=== PATIENT | male | born 1955 | race Asian ===

== ENCOUNTER 2017-08-02 10:05 | Emergency (ER) | payer MEDICARE, OTHER ==
[~2017-08-02] VITALS: Ht 167.6 cm; Wt 88.4 kg
[~2017-08-02 10:05] MED LIST: ALLO100T PO; ASPI325T4 PO; CARV3.1260 PO; CLOP75TA28 PO; COLC0.6T6 PO; FURO-109 PO; HYDR-3498 PO; LISI2.5T59 PO; METF500T3 PO; POTA8CAP PO; SIMV40TA3 PO
[2017-08-02 10:08] VITALS: Ht 167.6 cm; Wt 88.4 kg
[2017-08-02 10:55] LABS: BASOPHIL # 0.1 10^3/ul (0.0-0.1); BASOPHILS % 0.7 % (0.0-2.0); EOSINOPHILS # 0.2 10^3/ul (0.0-0.5); EOSINOPHILS % 2.4 % (0.0-7.0); HEMOGLOBIN 14.4 g/dl (14.0-18.0); LYMPHOCYTES # 2.6 10^3/ul (0.8-2.9); LYMPHOCYTES % 30.7 % (15.0-51.0); MEAN CORPUSCULAR HEMOGLOBIN 30.6 pg (29.0-33.0); MEAN CORPUSCULAR HGB CONC 34.3 g/dl (32.0-37.0); MEAN CORPUSCULAR VOLUME 89.4 fl (82.0-101.0); MEAN PLATELET VOLUME 10.2 fl (7.4-10.4); MONOCYTE # 0.9 10^3/ul (0.3-0.9); MONOCYTES % 10.6 % (0.0-11.0); NEUTROPHIL # 4.6 10^3/ul (1.6-7.5); NEUTROPHILS % 55.2 % (39.0-77.0); PLATELET COUNT 257 10^3/UL (140-415); RED CELL DISTRIBUTION WIDTH 13.2 % (11.5-14.5); WHITE BLOOD COUNT 8.4 10^3/ul (4.8-10.8)
--- NOTE | 2017-08-02 11:21 | RADRPT ---
PROCEDURE: XR Left Shoulder. CLINICAL INDICATION: Left shoulder pain, no history of trauma TECHNIQUE: 3 views of the left shoulder are available for review. COMPARISON: None available FINDINGS: There is no acute fracture. There are chronic appearing calcification/ossification along the postero superior glenoid rim. Alignment is normal. There is mild acromioclavicular osteoarthrosis. Soft tissues are grossly unremarkable. IMPRESSION: 1. No radiographic evidence of acute osseous abnormality. 2. Mild acromioclavicular osteoarthrosis. 3. Chronic appearing calcification/ossification along the posterosuperior glenoid rim, likely associ ated with the labrum. RPTAT: UU .Dom Schofield MD, MD Date Time Electronically viewed and signed by .Dom Schofield MD, on 08/02/2017 11:20 .K/
[2017-08-02 11:27] LABS: CREATININE 0.99 mg/dl (0.61-1.24); POTASSIUM 3.9 mmol/L (3.5-5.1)
--- NOTE | 2017-08-02 11:27 | RADRPT ---
PROCEDURE: XR Chest. CLINICAL INDICATION: Chest Pain. TECHNIQUE: Single frontal view of the chest was obtained COMPARISON: Chest radiograph dated June 30, 2016. FINDINGS: There is stable cardiomegaly. Coronary artery stent is present. The lungs are clear with no focal consolidations, pleural effusions, or pneumothorax. Degenerative changes of the shoulder joints are present. IMPRESSION: 1. No acute cardiopulmonary disease. RPTAT:AAJJ Car Wooten Physician Date Time Electronically viewed and signed by Car Wooten Physician on 08/02/2017 11:27 QL/
[2017-08-02 11:35] LABS: TROPONIN-I 0.017 ng/ml (0.00-0.12)
--- NOTE | 2017-08-02 12:17 | ERD ---
ER Documentation Chief Complaint Chief Complaint left shoulder pain x 1 week, sent by pmd for cardiac workup HPI This is a 62-year-old gentleman who presents with 1 week of shoulder pain. The patient has a history of cardiac disease and stenting and he was sent by his primary care physician's office because of concern for possible cardiac etiology. The patient describes nocturnal left shoulder pain that is worse when he is sleeping on the shoulder. It is slightly worse with rotational movement. He denies any chest pain or exertional pain, no numbness or tingling and no back pain. This is not his anginal equivalent. ROS All systems reviewed and are negative except as per history of present illness. Medications Home Meds Active Scripts Ibuprofen* (Motrin*) 800 Mg Tab, 800 MG PO Q6H Y for PAIN AND OR ELEVATED TEMP, #30 TAB Prov:MINOO BHATIA MD 08/02/17 Potassium Chloride* (Potassium Chloride*) 8 Meq Capsule.er, 8 MEQ PO DAILY, #30 CAP 3 Refills Prov:LOLY KUMAR 07/01/16 Furosemide* (Lasix*) 40 Mg Tablet, 40 MG PO DAILY, #30 TAB 3 Refills Prov:LOLY KUMAR 07/01/16 Lisinopril* (Lisinopril*) 2.5 Mg Tablet, 2.5 MG PO DAILY for 30 Days, #30 TAB 3 Refills Prov:LOLY KUMAR 07/01/16 Hydrocodone Bit-Acetaminophen (Hydrocodone Bit-APAP) 5-325MG Tablet, 1 TAB PO Q4H Y for PAIN, #30 TAB Prov:LOLY KUMAR 07/01/16 Colchicine* (Colcrys*) 0.6 Mg Tablet, 0.6 MG PO DAILY for 30 Days, TAB 3 Refills Prov:LOLY KUMAR 07/01/16 Clopidogrel Bisulfate (Clopidogrel) 75 Mg Tablet, 75 MG PO DAILY for 30 Days, TAB 3 Refills Prov:LOLY KUMAR 07/01/16 Carvedilol* (Carvedilol*) 3.125 Mg Tablet, 3.125 MG PO BID for 30 Days, TAB 3 Refills Prov:LOLY KUMAR 07/01/16 Aspirin (Aspirin Lite-Coat) 325 Mg Tablet, 325 MG PO DAILY for 30 Days, TAB 3 Refills Prov:LOLY KUMAR 07/01/16 Allopurinol* (Allopurinol*) 100 Mg Tablet, 100 MG PO DAILY for 30 Days, TAB 3 Refills Prov:LOLY KUMAR 07/01/16 Reported Medications Metformin* (Glucophage* XR) 500 Mg Tab.sr.24h, 500 MG PO DAILY, 06/22/16 Simvastatin (Simvastatin) 40 Mg Tablet, 40 MG PO DAILY, #30 TAB 06/22/16 Allergies Allergies: Coded Allergies: No Known Drug Allergy (Verified Allergy, Unknown, 06/29/16) PMhx/Soc History of Surgery: Yes (stent placement) Anesthesia Reaction: No Hx Neurological Disorder: No Hx Respiratory Disorders: No Hx Cardiac Disorders: Yes (htn.[place]) Hx Psychiatric Problems: No Hx Miscellaneous Medical Probl: Yes (arthritis) Hx Alcohol Use: Yes (socially) Hx Substance Use: No Hx Tobacco Use: Yes Smoking Status: Former smoker FmHx Family History: No diabetes Physical Exam Vitals Vital Signs Date Time Temp Pulse Resp B/P Pulse Ox O2 Delivery O2 Flow Rate FiO2 08/02/17 10:08 98.0 60 18 174/79 99 Physical Exam General: Well developed, well nourished, no acute distress Head: Normocephalic, atraumatic. Eyes: Pupils equally reactive, EOM intact ENT: Moist mucous membranes Neck: Supple, no lymphadenopathy Respiratory: Lungs clear bilaterally, no distress Cardiovascular: RRR, no murmurs, rubs, or gallops Abdominal: Soft, non-tender, non-distended, no peritoneal signs : Deferred MSK: Left shoulder with mild soft tissue tenderness, negative supraspinatus test. Full active and passive range of motion without ligamentous instability. Neurologic: Alert and oriented, moving all extremities, normal speech, no focal weakness, no cerebellar signs Skin: No rash Psych: Normal mood Result Diagram: 08/02/17 1020 08/02/17 1020 Results 24 hrs Laboratory Tests Test 08/02/17 10:20 White Blood Count 8.410^3/ul Red Blood Count 4.7010^6/ul Hemoglobin 14.4g/dl Hematocrit 42.0% Mean Corpuscular Volume 89.4fl Mean Corpuscular Hemoglobin 30.6pg Mean Corpuscular Hemoglobin Concent 34.3g/dl Red Cell Distribution Width 13.2% Platelet Count 23382^3/UL Mean Platelet Volume 10.2fl Neutrophils % 55.2% Lymphocytes % 30.7% Monocytes % 10.6% Eosinophils % 2.4% Basophils % 0.7% Nucleated Red Blood Cells % 0.0/100WBC Neutrophils # 4.610^3/ul Lymphocytes # 2.610^3/ul Monocytes # 0.910^3/ul Eosinophils # 0.210^3/ul Basophils # 0.110^3/ul Nucleated Red Blood Cells # 0.010^3/ul Sodium Level 144mmol/L Potassium Level 3.9mmol/L Chloride Level 104mmol/L Carbon Dioxide Level 27mmol/L Anion Gap 17 Blood Urea Nitrogen 21mg/dl Creatinine 0.99mg/dl Glucose Level 108mg/dl Calcium Level 10.0mg/dl Troponin I 0.017ng/ml Procedures/MDM EKG, MONITORS, & DIAGNOSTIC IMAGING: EKG: I reviewed and interpreted a 12-lead EKG. Rhythm: Normal sinus rhythm Ectopy: None Intervals: No abnormalities ST segments: No elevations or depressions T waves: No contiguous inversions Chest x-ray: I reviewed and interpreted a 1 view of the chest Mediastinum: No enlargement Cardiac silhouette: No cardiomegaly Airspace: Clear lung robbins bilaterally without evidence of pneumothorax Bones: No evidence of fracture X-ray left shoulder IMPRESSION: 1. No radiographic evidence of acute osseous abnormality. 2. Mild acromioclavicular osteoarthrosis. 3. Chronic appearing calcification/ossification along the posterosuperior glenoid rim, likely associated with the labrum. Per radiologist LAB INTERPRETATION: Negative troponin MEDICAL DECISION MAKING: the patient presents for shoulder pain that seems to be very consistent with musculoskeletal etiology. X-ray imaging confirms calcification along the glenoid rim which is consistent with the patient's exam. The patient does not have anginal equivalent and while he does have cardiac history I do not believe that his presentation today is consistent with cardiac pain. The patient follows with Dr. Díaz. I have consulted Dr. Díaz and he will evaluate the patient in the emergency department. The patient had an appointment with him today. The patient states this is not consistent with his anginal equivalent. He has no exertional symptoms. He has a nonischemic EKG and a negative troponin with 1 week of symptoms. ER COURSE: I spoke to the patient's referring primary care physician and outpatient follow- up is appropriate. I spoke to Dr. Díaz who agrees with outpatient management. Patient will be treated with a course of NSAIDs with outpatient orthopedic surgery follow-up. MRI imaging may be necessary at a later date. I kept the patient and/or family informed of laboratory and diagnostic imaging results throughout the emergency room course. DISPOSITION PLAN: We discussed follow up with the patient's primary care doctor within 24 to 48 hours as needed. We also discussed return to the emergency room for worsening symptoms or worsening condition. Outpatient referral: Orthopedic surgery as needed Discharge Medications: Motrin Departure Diagnosis: Primary Impression: Left shoulder pain Chronicity: acute Qualified Code: M25.512 - Acute pain of left shoulder Condition: Stable MINOO BHATIA MD Aug 02, 2017 12:16
[2017-08-02] MEDS ORDERED: IBUP800T25 PO (13:21)
--- NOTE | 2017-08-03 07:28 | CONS ---
DATE OF ADMISSION: 08/02/2017 DATE OF CONSULTATION: 08/02/2017 CARDIOLOGY CONSULTATION REASON FOR CONSULTATION: Shoulder pain, questionable chest pain. REQUESTING PHYSICIAN: Dr. Nick from the emergency department. HISTORY OF PRESENT ILLNESS: Mr. Whitfield is a 62-year-old male with a history of hypertension and m yocardial infarction in June 2016, status post PTCA and stent placement to LAD for 100% occluded LAD, cardiomyopathy, decreased left ventricular ejection fraction who represents with complaints of left shoulder pain and questionable substernal chest pain. The patient upon arrival had temperatur e of 98, blood pressure 174/79, pulse 60, respirations 18, sat 99%. The patient's labs revealed a w joanne count 8.4, hemoglobin , platelet count of 257, sodium 144, potassium 3.9, creatinine of 0. 9, BUN 21. Troponin negative. The patient underwent a chest x-ray revealing no acute cardiopulmona ry disease and a shoulder x-ray that revealed no radiographic evidence of acute osseous abnormality, mild acromioclavicular osteoarthrosis, chronic-appearing calcification, ossification along the post erosuperior glenoid rim. The patient's electrocardiogram revealed normal sinus rhythm with no signi ficant ST-T abnormalities. The patient came to the emergency department. Had a negative troponin. The patient has no complaints of chest pain and is to possibly be discharged with close outpatient followup and review of recent stress test. PAST MEDICAL HISTORY: As above in HPI. MEDICATIONS AT HOME: 1. Plavix 75 mg daily. 2. Carvedilol 3.125 mg b.i.d. 3. Lisinopril 2.5 mg daily. 4. Simvastatin 40 mg daily. 5. Aspirin 325 daily. 6. [place] p.r.n. 7. Ibuprofen p.r.n. 8. Lasix 40 mg daily. 9. Potassium chloride 8 mEq daily. 10. Metformin 500 mg daily. 11. Allopurinol 100 mg daily. 12. Colchicine 0.6 mg daily. ALLERGIES: NO KNOWN DRUG ALLERGIES. SOCIAL HISTORY: No tobacco, EtOH, illicit drug use. FAMILY HISTORY: No history of sudden cardiac , . REVIEW OF SYSTEMS: As noted in HPI. CONSTITUTIONAL: No fevers, chills. PULMONARY: No current shortness of breath. CARDIOVASCULAR: No current chest pain. GASTROINTESTINAL: No vomiting. GENITOURINARY: No hematuria. MUSCULOSKELETAL: Shoulder pain. PSYCHIATRIC: The patient denies depression. NEUROLOGIC: No documented history of CVA. PHYSICAL EXAMINATION VITAL SIGNS: Temperature 98, blood pressure 174/79, pulse 60, respirations 18, sat 99%. GENERAL: The patient is alert, awake, complaining of shoulder pain. NECK: JVP approximately 8 to 9 cm of water. CHEST: Fair movement throughout. HEART: Regular rate and rhythm. Normal S1, S2. I/ systolic murmur. Nondisplaced PMI. ABDOMEN: Positive bowel sounds, soft. EXTREMITIES: No edema, 1+ pulses bilateral posterior tibial. LABORATORIES: As above in HPI. No further labs for my review at this time. IMAGING STUDIES: As above in HPI. No further imaging studies for my review at this time. ELECTROCARDIOGRAM: As above in HPI. No further electrocardiogram for my review at this time. IMPRESSION: 1. Chest pain: At this time, somewhat atypical etiology with negative troponin and no significant change on EKG. 2. History of percutaneous transluminal coronary angioplasty and stent placement to left anterior d escending in June 2016 for 100% occlusion. 3. History of cardiomyopathy, decreased left ventricular ejection fraction approximately 35% by [facility] o June 2017. 4. Hypertension. Currently uncontrolled but in the setting of shoulder pain and unclear if the pat ient took his medication this morning. 5. Dyslipidemia. RECOMMENDATIONS: 1. At this time would maintain the patient is his current medications as an outpatient including be ta elton, ABRAHAM inhibitor. Would use for any recurrent concerning chest pain. 2. Will continue the patient's baseline statin therapy. 3. Continue the patient's dual antiplatelet therapy with aspirin product for stent patency. 4. Continue his Lasix. Follow closely. 5. Will schedule the patient for followup appointment in my office to take place next week, at [facility] time we will further assess for any ongoing chest pain and need for further invasive evaluation. Thank you for allowing me to take part in the care of this patient. I will continue to follow him c losely with you. Dictated By: YAIR FRITZ/YURIY Conf#: [id number] DID#: [id number] CC: MINOO NICK MD;*[facility]*
== END 2017-08-02 14:12 | disposition home or self-care (01) ==
LOC: E/R 10:05
DX: M25.512 Pain in left shoulder (principal); I10 Essential (primary) hypertension; I51.9 Heart disease, unspecified; Z87.891 Personal history of nicotine dependence; Z79.82 Long term (current) use of aspirin; Z79.84 Long term (current) use of oral hypoglycemic drugs; Z98.61 Coronary angioplasty status
CPT/HCPCS: 36415; 71010; 73030; 80048; 84484; 85025; 93005

== ENCOUNTER 2018-08-08 15:38 | Emergency (ER) | END 2018-08-08 19:24 | disposition home or self-care (01) ==

== ENCOUNTER 2019-06-18 10:07 | Inpatient (IN) | payer MEDICARE, OTHER ==
[~2019-06-18] VITALS: Ht 167.6 cm; Wt 80.8 kg
[~2019-06-18 10:07] MED LIST changes: +ALLO300T2 PO; +APIX5TAB PO; +ASPI-817 PO; +ASPI325T29 PO; -ASPI325T4 PO; +BLOO-1202 MC; +CHOL100062 PO; +CLOP75TA19 PO; +FURO40TA4 PO; -HYDR-3498 PO; +HYDR-3601 PO; +HYDR-4011 PO; +IBUP800T48 PO; +LANC1COM MC; +LISI-313 PO; +METF-849 PO; +NAPR-688 PO; +NITR0.4T32 SL; -POTA8CAP PO; +POTA8CAP19 PO; +PRED20TA PO; +PREG50CA PO; +SIMV40TA2 PO; +[UNRECOGNIZED DRUG - CODE] SL
[2019-06-18] MEDS ORDERED: ASPIRIN 325 MG TAB PO STA (11:06)
[2019-06-18] MEDS ORDERED: NITROGLYCERIN (SL) 0.4 MG TAB SL PRN ×2 (11:30→18:00)
[2019-06-18] MEDS ORDERED: SOD CHLORIDE 0.9% 500 ML IV STA (11:55)
[2019-06-18] MEDS ORDERED: ONDANSETRON 4 MG INJ IV PRN (13:00)
[2019-06-18] MEDS ORDERED: ACETAMINOPHEN 325 MG TAB PO PRN (13:00)
[2019-06-18 17:23] VITALS: BP 133/77; PULSE 65; RESP 20
[2019-06-18 17:32] VITALS: Ht 167.6 cm; Wt 80.8 kg
[2019-06-18] MEDS: INSULIN ASPART [NOVOLOG] 3 ML PEN SC SCH ×2 (18:00→21:00)
[2019-06-18] MEDS ORDERED: GLUCOSE GEL 15 GRAM TUBE BUCCAL PRN (19:00)
[2019-06-18] MEDS ORDERED: DEXTROSE 50% 50 ML SYRINGE IV PRN ×2 (19:00)
[2019-06-18] MEDS ORDERED: GLUCOSE GEL 15 GRAM TUBE PO PRN ×2 (19:00)
[2019-06-18] MEDS ORDERED: GLUCAGON 1 MG INJ IM PRN (19:00)
[2019-06-18 19:20] VITALS: BP 128/78; PULSE 61; RESP 21
[2019-06-18] MEDS ORDERED: NON-FORMULARY/PATIENT OWN MED (Simvastatin* (Zocor*) 40 MG) PO SCH (21:00)
[2019-06-18 21:20] VITALS: BP 132/83; PULSE 74; RESP 19
[2019-06-18] MEDS: ATORVASTATIN 20 MG TAB PO SCH (21:26)
[2019-06-18] MEDS: PREGABALIN 25 MG CAP PO SCH (23:22)
[2019-06-18 23:35] VITALS: BP 125/81; PULSE 71; RESP 21
[2019-06-19] MEDS: ACCU-CHEK XX SCH (02:00)
[2019-06-19 04:20] VITALS: BP 122/77; PULSE 75; RESP 22
[2019-06-19 07:12] VITALS: BP 122/72; PULSE 71; RESP 20
[2019-06-19] MEDS: INSULIN ASPART [NOVOLOG] 3 ML PEN SC SCH ×4 (08:00→22:16)
[2019-06-19] MEDS: CLOPIDOGREL 75 MG TAB PO SCH (08:14)
[2019-06-19] MEDS: ALLOPURINOL 300 MG TAB PO SCH (08:14)
[2019-06-19] MEDS: CHOLECALCIFEROL 1,000 UNIT TAB PO SCH (08:14)
[2019-06-19] MEDS: LISINOPRIL 5 MG TAB PO SCH (08:14)
[2019-06-19] MEDS: CYANOCOBALAMIN 500 MCG TAB PO SCH (08:14)
[2019-06-19] MEDS: ASPIRIN (EC) 81 MG TAB PO SCH (08:15)
[2019-06-19] MEDS: FUROSEMIDE 40 MG TAB PO SCH (08:15)
[2019-06-19] MEDS: PREGABALIN 25 MG CAP PO SCH ×3 (08:15→21:05)
[2019-06-19] MEDS ORDERED: NON-FORMULARY/PATIENT OWN MED (Cyanocobalamin (Vitamin B-12) (Vitamin B-12) 1,000 MCG) SL SCH (09:00)
[2019-06-19 10:54] VITALS: BP 105/62; PULSE 61; RESP 20
[2019-06-19 15:19] VITALS: BP 109/69; PULSE 72; RESP 20
[2019-06-19 20:00] VITALS: BP_SYST 117; BP_SYST 145; BP_DIAS 58; BP_DIAS 75; PULSE 65; RESP 20
[2019-06-19] MEDS: ATORVASTATIN 20 MG TAB PO SCH (21:05)
[2019-06-20] VITALS (7 sets, daily range): BP systolic 99–140; BP diastolic 56–89; PULSE 55–67; RESP 18–20
[2019-06-20] MEDS: ACCU-CHEK XX SCH (01:26)
[2019-06-20] MEDS: INSULIN ASPART [NOVOLOG] 3 ML PEN SC SCH ×5 (05:00→21:00)
[2019-06-20] MEDS: CHOLECALCIFEROL 1,000 UNIT TAB PO SCH (08:24)
[2019-06-20] MEDS: ASPIRIN (EC) 81 MG TAB PO SCH (08:25)
[2019-06-20] MEDS: PREGABALIN 25 MG CAP PO SCH ×2 (08:25→21:54)
[2019-06-20] MEDS: CYANOCOBALAMIN 500 MCG TAB PO SCH (08:25)
[2019-06-20] MEDS: ALLOPURINOL 300 MG TAB PO SCH (08:26)
[2019-06-20] MEDS: CLOPIDOGREL 75 MG TAB PO SCH (08:26)
[2019-06-20] MEDS: LISINOPRIL 5 MG TAB PO SCH (08:26)
[2019-06-20] MEDS: FUROSEMIDE 40 MG TAB PO SCH (08:26)
[2019-06-20] MEDS: SOD CHLORIDE 0.9% 1,000 ML IV SCH (11:22)
[2019-06-20] MEDS ORDERED: DIPHENHYDRAMINE 50 MG CAP PO ONE (11:30)
[2019-06-20] MEDS ORDERED: DIAZEPAM 5 MG TAB PO ONE (11:30)
[2019-06-20] MEDS ORDERED: LIDOCAINE 1% (MDV) 20 ML INJ ONE (14:16)
[2019-06-20] MEDS ORDERED: HEPARIN 1000 UNITS/ML 10 ML INJ ONE ×2 (14:16→14:32)
[2019-06-20] MEDS ORDERED: IODIXANOL LOCM 100 ML BTL ONE (14:16)
[2019-06-20] MEDS ORDERED: VERAPAMIL 5 MG INJ ONE (14:32)
[2019-06-20] MEDS ORDERED: NITROGLYCERIN (IC) 100 MCG/ML INJ ONE (14:32)
[2019-06-20] MEDS ORDERED: FENTAnyl 50 MCG/ML VIAL ONE (14:38)
[2019-06-20] MEDS ORDERED: MIDAZOLAM 1 MG/ML 2 ML INJ ONE (14:38)
[2019-06-20] MEDS ORDERED: niCARdipine 25 MG INJ ONE (15:31)
[2019-06-20] MEDS ORDERED: BIVALIRUDIN 250MG /NS 50 ML 50 ML IVPB ONE (15:36)
[2019-06-20] MEDS ORDERED: SOD CHLORIDE 0.9% 1,000 ML IV SCH (15:48)
[2019-06-20] MEDS ORDERED: ONDANSETRON 4 MG INJ IV PRN (16:00)
[2019-06-20] MEDS ORDERED: OXYCODONE/ACETAMINOPHEN (5/325) TAB PO PRN (16:00)
[2019-06-20] MEDS ORDERED: AL HYDROX/MG HYDROX/SIMETH 30 ML CUP PO PRN (16:00)
[2019-06-20] MEDS ORDERED: ACETAMINOPHEN 325 MG TAB PO PRN (16:00)
[2019-06-20] MEDS ORDERED: morphine 2 MG INJ IV PRN (16:00)
[2019-06-20] MEDS ORDERED: ENOXAPARIN 40 MG/0.4 ML SYG SC SCH (21:00)
[2019-06-20] MEDS: ATORVASTATIN 20 MG TAB PO SCH (21:55)
[2019-06-21] MEDS: ACCU-CHEK XX SCH (02:00)
[2019-06-21 03:25] VITALS: BP 91/51; PULSE 61; RESP 20
[2019-06-21] MEDS: SOD CHLORIDE 0.9% 1,000 ML IV SCH (03:46)
[2019-06-21 07:45] VITALS: BP 113/68; PULSE 59; RESP 20
[2019-06-21] MEDS: INSULIN ASPART [NOVOLOG] 3 ML PEN SC SCH ×2 (08:00→11:32)
[2019-06-21] MEDS: PREGABALIN 25 MG CAP PO SCH (08:54)
[2019-06-21] MEDS: CHOLECALCIFEROL 1,000 UNIT TAB PO SCH (08:54)
[2019-06-21] MEDS: LISINOPRIL 5 MG TAB PO SCH (08:54)
[2019-06-21] MEDS: ALLOPURINOL 300 MG TAB PO SCH (08:54)
[2019-06-21] MEDS: CLOPIDOGREL 75 MG TAB PO SCH (08:54)
[2019-06-21] MEDS: ASPIRIN (EC) 81 MG TAB PO SCH (08:54)
[2019-06-21] MEDS: CYANOCOBALAMIN 500 MCG TAB PO SCH (08:55)
[2019-06-21] MEDS: FUROSEMIDE 40 MG TAB PO SCH (08:55)
[2019-06-21 11:04] VITALS: BP 109/66; PULSE 70; RESP 18
[2019-06-21 14:44] VITALS: BP 113/60; PULSE 73; RESP 18
[2019-06-21] MEDS ORDERED: APIXABAN 5 MG TABLET PO SCH (21:00)
== END 2019-06-21 15:56 | disposition home or self-care (01) | DRG 287 ==
LOC: E/R 10:07 → 6WM 12:47 → REC 06-20 07:56 → 6WM 06-20 07:59 → OBSVTOIN 06-21 10:30
PROVIDERS: ADMIT Family Medicine; ATTEND Family Medicine
PROC: 4A023N7 Measurement of Cardiac Sampling and Pressure, Left Heart, Percutaneous Approach (ICD-10-PCS; principal; 2019-06-20)
PROC: B211YZZ Fluoroscopy of Multiple Coronary Arteries using Other Contrast (ICD-10-PCS; 2019-06-20)
PROC: 02JA3ZZ Inspection of Heart, Percutaneous Approach (ICD-10-PCS; 2019-06-20)
DX: I25.110 Atherosclerotic heart disease of native coronary artery with unstable angina pectoris (principal); E11.649 Type 2 diabetes mellitus with hypoglycemia without coma; I42.9 Cardiomyopathy, unspecified; R55 Syncope and collapse; R07.9 Chest pain, unspecified; I10 Essential (primary) hypertension; E78.5 Hyperlipidemia, unspecified; M1A.9XX0 Chronic gout, unspecified, without tophus (tophi); I25.2 Old myocardial infarction; Z79.82 Long term (current) use of aspirin; Z79.4 Long term (current) use of insulin; Z79.01 Long term (current) use of anticoagulants; Z87.891 Personal history of nicotine dependence; Z95.5 Presence of coronary angioplasty implant and graft
CPT/HCPCS: 36415; 71045; 80048; 80053; 80307; 81003; 82550; 82553; 82962; 83735; 83880; 84484; 85025; 85610; 85730; 93005; 93306; 93458; 96360; G0378; C1887; J0583; J1644; J1650; J1815; J2250; J3010; J7030; J7040; Q9967